=== PATIENT | female | born 1970 | race Caucasian/White ===

== ENCOUNTER → 2018-05-03 | Outpatient (CLI) | payer OTHER ==
[~2018-05-03] VITALS: Ht 160 cm; Wt 74.6 kg
[~2018-05-03] MED LIST: COLACE100 MG PO; CYMBALTA30 MG PO; CYMBALTA60 MG PO; HYDROCODON-ACE1 EAC7 PO; OVCON-351 EACH PO; QUETIAPINE FUM100 MG PO; RELAFEN500 MG PO; SENNA S TABLET1 EACH PO; SUBOXONE 8 MG-1 EAC3 SUBLING; VALIUM2 MG PO; VICODIN 5-5001 EACH PO
[2018-05-03 12:35] VITALS: BP 140/82
--- NOTE | 2018-05-03 12:50 | NUR ---
Pain Clinic Assessment: 1. History of Osteoarthritis: History of Rheumatoid Arthritis: 2. Height: 5 ft. 3 in. 160.0 cm. Weight: 164.4 lb. oz. 74.571 kg. Patient's BMI: 29.1 3. Vital Signs: BP: 140/82 Pulse: 96 Resp: 16 Temp: 02 Sat: 97 ECG Mon: 4. Pain Intensity: 8 5. Fall Risk: Dizziness: N Needs help standing or walking: N Fallen in the last 3 months: N Fall risk comments: 6. Patient on Blood Thinner: None 7. History of Hypertension: Y 8. Opioid Therapy greater than 6 weeks: Y Opiate Contract Signed: 9. Risk Assessment Tool Provided: LOW 10. Functional Assessment Tool: 65/70 11. Recreational Drug Use: Never Drug Type: Tobacco Use: Current Every Day Smoker Tobacco Type: Cigarettes Amount or Packs/day: 2 PACK/DAY How Many Years: 28 Alcohol Use: No Frequency: Quant:
== END ==
LOC: PAIN 07:12
DX: M54.5 Low back pain (principal); M54.2 Cervicalgia; M79.605 Pain in left leg; M79.604 Pain in right leg; F17.210 Nicotine dependence, cigarettes, uncomplicated

== ENCOUNTER → 2018-06-05 | Outpatient (CLI) | payer OTHER ==
[~2018-06-05] VITALS: Ht 160 cm; Wt 75.8 kg
[~2018-06-05] MED LIST changes: +AMITRIPTYLINE H25 M2 PO; +GRALISE600 MG PO
--- NOTE | ~2018-06-05 | HPC ---
[facility] [address] [place] [address] PAIN MANAGEMENT CONSULTATION Name: RASHEL CARLIN Room #: REG MARILEE Harman#: [id number] Admission: 06/05/18 ������������������ Attend Phys: Yusuf Conway MD Discharge: ������������������ Date of : 72 Report #: [id number] THIS REPORT FOR: //name// CC: Yusuf De La Vega DATE OF SERVICE: 06/05/2018 CHIEF COMPLAINT: Continued constant neck and back pain. HISTORY OF PRESENT ILLNESS: The patient is a 47-year-old female who has had a number of back surgeries, had back surgery in 2005, neck surgery in 2011 and neck surgery in 2017. As you recall, she has a brain aneurysm clipping in 2016 and has had constant back and neck pain. Describes her discomfort continuous. Has aching and throbbing sensation. Rates her pain overall as an 8/10. She has been using Suboxone. She feels that her pain continues to be quite problematic. Her neurosurgeon does not feel that there is a surgical option for her at this juncture. The patient is still frustrated regarding her situation because of her chronic pain. ALLERGIES: CELEBREX. MEDICATIONS: Ativan 1 mg p.o. t.i.d., Ambien 12.5 mg extended release, meclizine 25 mg 1 p.o. t.i.d. p.r.n., has used Suboxone 8/2 mg sublingual takes in the a.m., and one-half in the evening, and Cymbalta 60 mg delayed release. PAIN CLINIC ASSESSMENT/PQRS: 1. Osteoarthritic changes in her lower back. The patient is not being treated for rheumatoid arthritis. 2. Height 5 foot 3 inches, weight 167 pounds, BMI is 29.6. 3. Vital signs: Blood pressure 144/95, pulse is 123, respiratory rate 18, room air saturation 97%. 4. Pain intensity, 8/10. 5. Fall risk. The patient has not fallen in the last 3 months. 6. Blood thinner. The patient is not on a blood thinning medication. 7. Hypertension. The patient is being treated for hypertension. 8. Opioids. The patient was receiving Suboxone in the past. 9. Risk assessment tool, high for opioid use. 10. Functional assessment tool, 65/70. 11. Recreational drug use. The patient denies use of recreational drugs. 12. Tobacco: The patient smokes 2 packs a day and has smoked for the last 28 years. 13. Alcohol: The patient denies use of alcoholic beverages. PHYSICAL EXAMINATION: GENERAL: The patient is a well-developed, well-nourished white female. Appears [address] [address] PAIN MANAGEMENT CONSULTATION Name: RASHEL CARLIN Mook Room #: REG CLDallas Harman#: [id number] Admission: 06/05/18 ������������������ Attend Phys: Yusuf Conway MD Discharge: ������������������ Date of : 72 Report #: [id number] her stated age. She is alert and oriented x 3. Affect is appropriate. She is somewhat distressed because of her chronic pain. Has some limitation of movement in her neck secondary to fusion of C5-C6. Has perception of weakness in arms. Complains of pain that radiates down the L4-L5 dermatomal distribution across the lower portion of her back. States that she has cages in the lower portion of her back in the L5-S1 distribution is experiencing pain. Well-healed scars in these areas. HEART: Regular rate. ABDOMEN: Nontender. LUNGS: Generally clear to auscultation. EXTREMITIES: Lower extremity muscle strength judged to be 5-/5 for the lower extremity. IMPRESSION: Chronic pain involving cervical area as well as lumbar area. RECOMMENDATIONS: We discussed treatment options with the patient. At this juncture, we will have the patient try Elavil 25 mg 2 tablets at bedtime. Hopefully, she will find that this improved her sleep. Hopefully, this will also help with the chronic pain, which she is experiencing. These medications can be helpful with the patients with chronic pain. We will also try Gralise 600 mg 3 tablets daily. We explained the benefits of Gralise as well as the use of nonopioid medications for chronic pain. The patient will try these medications and will follow up in the future. ��������������������������������������������� ���������������������������������������� By: ��������������������������������������������� [id number] Yusuf Conway MD /oralia
[2018-06-05 11:05] VITALS: BP 144/95
== END ==
LOC: PAIN 07:10
DX: M54.2 Cervicalgia (principal); M54.5 Low back pain; G89.29 Other chronic pain; Z79.899 Other long term (current) drug therapy